=== PATIENT | female | born 1995 | race Two or more races ===

== ENCOUNTER → 2020-06-28 | Emergency (ER) | payer SELFPAY ==
[~2020-06-28] VITALS: Ht 162.6 cm; Wt 103.0 kg
[2020-06-28 12:47] LABS: Urine WBC None Seen /hpf (0 - 5)
[2020-06-28 13:06] LABS: Urine Bacteria NONE SEEN /hpf (None Seen); Urine Blood Negative /uL (Negative); Urine Specific Gravity 1.007 (1.001-1.035)
[2020-06-28 13:10] LABS: Basophils # (auto) 0 10 ^3/uL (0-0.2); Eosinophils # (auto) 0.1 10 ^3/uL (0-0.8); Eosinophils % (auto) 0.5 % (0.0-7.0); Hemoglobin 11.8 g/dL (12.2-16.2); Monocytes # (auto) 0.9 10 ^3/uL (0-1.3); White Blood Cell 12.1 10^3/uL (4.4-10.8)
[2020-06-28 13:14] LABS: Basophils % (auto) 0.3 % (0.0-2.0); Hematocrit 35.3 % (36.0-46.0); Lymphocytes # (auto) 2.3 10 ^3/uL (0.4-5.4); Mean Corpuscular Hemoglobin 27.1 pg (28.0-32.0); Mean Corpuscular Hgb Conc. 33.5 g/dL (32.0-36.0); Monocytes % (auto) 7.1 % (0.0-12.0); Neutrophils # (auto) 8.8 10 ^3/uL (1.6-8.6); Neutrophils % (auto) 73.1 % (37.0-80.0); Nucleated Red Blood Cells % 0.1 %; Platelet Count (auto) 346 10^3/uL (140-450); Red Blood Cells 4.36 10^6/uL (4.0-5.20); Red Cell Distribution Width 14.5 % (11.8-14.3)
[2020-06-28 13:24] LABS: Albumin 2.7 g/dL (3.4-5.0); Calcium 9.1 mg/dL (8.5-10.1); Potassium 3.7 mmol/L (3.5-5.1)
[2020-06-28 13:29] LABS: BUN/Creatinine Ratio 15.8; Bilirubin, Total 0.2 mg/dL (0.2-1.0); Total Protein 7.2 g/dL (6.4-8.2)
[2020-06-28 17:05] VITALS: BP 142/72
== END | disposition home or self-care (01) ==
LOC: ER 11:02
DX: O46.93 Antepartum hemorrhage, unspecified, third trimester (principal); O99.113 Other diseases of the blood and blood-forming organs and certain disorders involving the immune mechanism complicating pregnancy, third trimester; D72.829 Elevated white blood cell count, unspecified; O26.893 Other specified pregnancy related conditions, third trimester; E86.0 Dehydration; Z3A.33 33 weeks gestation of pregnancy
CPT/HCPCS: 36415; 76805; 80053; 81001; 84702; 85025

== ENCOUNTER 2020-08-04 18:57 | Observation (INO) | payer MEDICAID ==
[~2020-08-04] VITALS: Ht 177.8 cm; Wt 103.0 kg
[2020-08-04 20:30] LABS: Urine WBC None Seen /hpf (0 - 5)
[2020-08-04 20:54] LABS: Amphetamine Screen, Urine NEGATIVE (NEGATIVE); Barbiturate Scree,Urine NEGATIVE (NEGATIVE); Benzodiazephine Screen, Urine NEGATIVE (NEGATIVE); Cannabinoid Screen, Urine NEGATIVE (NEGATIVE); Cocaine Screen, Urine NEGATIVE (NEGATIVE); Opiate Scree,Urine NEGATIVE (NEGATIVE); Phencyclidine Screen, Urine NEGATIVE (NEGATIVE)
[2020-08-04 21:04] LABS: Basophils # (auto) 0 10 ^3/uL (0-0.2); Eosinophils # (auto) 0.1 10 ^3/uL (0-0.8); Hemoglobin 11.8 g/dL (12.2-16.2); Lymphocytes # (auto) 2.9 10 ^3/uL (0.4-5.4)
[2020-08-04 21:06] LABS: Basophils % (auto) 0.4 % (0.0-2.0); Eosinophils % (auto) 0.6 % (0.0-7.0); Hematocrit 35.9 % (36.0-46.0); Lymphocytes % (auto) 21.9 % (10.0-50.0); Mean Corpuscular Hemoglobin 26.4 pg (28.0-32.0); Mean Corpuscular Hgb Conc. 32.8 g/dL (32.0-36.0); Mean Corpuscular Volume 80.7 fL (80.0-100.0); Monocytes % (auto) 7.5 % (0.0-12.0); Neutrophils # (auto) 9.4 10 ^3/uL (1.6-8.6); Neutrophils % (auto) 69.6 % (37.0-80.0); Platelet Count (auto) 298 10^3/uL (140-450); Red Blood Cells 4.45 10^6/uL (4.0-5.20); Red Cell Distribution Width 15.2 % (11.8-14.3); White Blood Cell 13.4 10^3/uL (4.4-10.8)
[2020-08-04 21:11] LABS: Urine Bacteria FEW /hpf (None Seen); Urine Blood Negative /uL (Negative); Urine Specific Gravity 1.003 (1.001-1.035)
[2020-08-04 21:17] LABS: INR 0.92 (0.9-1.15); Partial Thromboplastin Time 26.8 sec (23.0-31.2)
[2020-08-04 21:19] LABS: Albumin 2.6 g/dL (3.4-5.0); Calcium 8.6 mg/dL (8.5-10.1); Potassium 3.9 mmol/L (3.5-5.1)
[2020-08-04 21:24] LABS: BUN/Creatinine Ratio 15.4; Bilirubin, Total 0.2 mg/dL (0.2-1.0); Total Protein 6.8 g/dL (6.4-8.2); Uric Acid 5.4 mg/dL (2.6-6.0)
[2020-08-04 21:57] LABS: Creatinine, Urine 26 mg/dL (30.0-125.0); Protein, Urine < 5.0 mg/dL (0.0-11.9)
[2020-08-04] MEDS ORDERED: LABETALOL HCL 200 MG TAB PO ONE (23:00)
[2020-08-05] MEDS ORDERED: ceFAZolin 1GM 2 GM in D5W 5% 100 ML IV ONE (06:45)
[2020-08-05] MEDS ORDERED: LACTATED RINGER'S 1,000 ML IV SCH (06:45)
[2020-08-06 05:07] LABS: RPR Non Reactive (Non Reactive)
== END 2020-08-05 08:00 | disposition home or self-care (01) ==
LOC: LDRP 18:57
PROVIDERS: ADMIT Specialist; ATTEND Specialist
DX: O42.92 Full-term premature rupture of membranes, unspecified as to length of time between rupture and onset of labor (principal); O13.3 Gestational [pregnancy-induced] hypertension without significant proteinuria, third trimester; O32.1XX0 Maternal care for breech presentation, not applicable or unspecified; Z3A.40 40 weeks gestation of pregnancy
CPT/HCPCS: 36415; 59025; 76805; 80053; 80307; 81001; 81002; 82570; 84112; 84156; 84550; 85025; 85379; 85384; 85610; 85730; 86592; 86703; 86762; 86850; 86900; 86901; 87340; 87491; 87591; G0378; Q0114; 87081; 87426; J0690; J7060